=== PATIENT | female | born 1930 | race Caucasian/White ===

== ENCOUNTER 2018-06-01 06:39 | Day surgery (SDC) | payer MEDICARE, BC ==
[2018-06-01] MEDS ORDERED: Propofol 200 MG/20 ML SDV IV ONE (06:40)
[2018-06-01] MEDS: Lactated Ringers 1,000 ML IV SCH (07:27)
--- NOTE | 2018-06-01 08:26 | PCM.OPNOTE ---
- General Post-Op/Procedure Note Date of Surgery/Procedure: 06/01/18 Operative Procedure(s): c scope with bx Findings: tomy stricture anus diverticulosis descending colon polyp Pre Op Diagnosis: change in bowel habits personal hx of colon ca Post-Op Diagnosis: tomy stricture anus. diverticulosis. descending colon polyp Anesthesia Technique: MAC Primary Surgeon: Angelo Bowman Anesthesia Provider: Kimberley Wilson Pathology: colon polyp Complications: None Condition: Good Free Text/Narrative:: see dictation
[2018-06-01 09:30] VITALS: BP 123/52
--- NOTE | 2018-06-01 11:17 | OR ---
DATE OF OPERATION: 06/01/2018 SURGEON: Angelo Bowman MD PROCEDURE PERFORMED: Colonoscopy with cold forceps biopsy. PREOPERATIVE DIAGNOSES: Change in stool habits and personal history of colon cancer. POSTOPERATIVE DIAGNOSIS: Descending colon polyp and tomy-stricture of the anus. INDICATIONS FOR PROCEDURE: This is an 88-year-old white female who presents with a complaint of some flattening of her stool on defecation, especially if she is off her fiber. She has a personal history of colon cancer. Had a flexible sigmoidoscopy several years ago, which was unremarkable, but because of the persistent symptoms, a colonoscopy was offered and accepted. DESCRIPTION OF PROCEDURE: After an excellent IV sedation was administered, digital rectal exam was performed. On the posterior half of the anus, the sphincter was not as flexible as the anterior half. There was, in a sense, stricturing of half of the colon; however, fingertip and colonoscope were easily inserted, and this was not markedly restrictive in any way. The flexible colonoscope was inserted and advanced to the ileocolic anastomosis and slowly withdrawn. The following findings were noted: Transverse colon, unremarkable. Descending colon; occasional diverticula, small polypoid lesion, biopsied and submitted for permanent. Photo was taken. Sigmoid, diverticula. Colon was deflated, and the scope was removed. The patient tolerated the procedure well. Results by letter. /[id number] /MODL
== END 2018-06-01 09:14 | disposition home or self-care (01) ==
LOC: FB.SDS 06:39
PROVIDERS: ATTEND Surgery
DX: D12.4 Benign neoplasm of descending colon (principal); K57.30 Diverticulosis of large intestine without perforation or abscess without bleeding; K62.4 Stenosis of anus and rectum; I10 Essential (primary) hypertension; M19.90 Unspecified osteoarthritis, unspecified site; Z88.2 Allergy status to sulfonamides; Z88.8 Allergy status to other drugs, medicaments and biological substances; Z90.49 Acquired absence of other specified parts of digestive tract; Z85.038 Personal history of other malignant neoplasm of large intestine; Z79.1 Long term (current) use of non-steroidal anti-inflammatories (NSAID); Z79.82 Long term (current) use of aspirin; Z79.899 Other long term (current) drug therapy
CPT/HCPCS: 00811-QZ; 88305; J2704; J7120

== ENCOUNTER 2019-10-30 17:53 | Emergency (ER) | payer MEDICARE, BC ==
--- NOTE | 2019-10-30 19:43 | EDM.PDOC ---
ED HPI GENERAL MEDICAL PROBLEM - General Chief Complaint: Head Injury Stated Complaint: HEAD INJURY Time Seen by Provider: 10/30/19 18:20 Source of Information: Reports: Patient History Limitations: Reports: No Limitations - History of Present Illness INITIAL COMMENTS - FREE TEXT/NARRATIVE: Patient presented to the ED because of a head injury. She tripped and fell while in the kitchen and hit the left side of her head at edge of the wall and sustained a 2 cm laceration which already stopped bleeding upon her arrival in the ED. Denies any headache,N/V or LOC after the fall. She also c/o left hip pain although she was able to ambulate after the fall. Left Hip Pain Score (Numeric/FACES): 3 - Related Data Allergies Allergy/AdvReac Type Severity Reaction Status Date / Time lisinopril Allergy Cough Verified 10/30/19 20:01 metoprolol Allergy Dizziness Verified 10/30/19 20:01 Sulfa (Sulfonamide Allergy Rash Verified 10/30/19 20:01 Antibiotics) Home Meds: Home Meds Losartan/Hydrochlorothiazide [Losartan-HCTZ 50-12.5 MG] 1 each PO DAILY 10/25/12 [History] Multivitamin [Multi-Vitamin Daily] 1 each PO DAILY 10/25/12 [History] Aspirin [Adult Low Dose Aspirin EC] 1 tab PO DAILY 05/31/18 [History] Calcium Citrate/Vitamin D3 [Calcium Citrate-Vit D3 Tablet] 1 tab PO BID 05/31/18 [History] Citalopram Hydrobromide [Celexa] 1 tab PO DAILY 05/31/18 [History] Digoxin [Digox] 1 tab PO DAILY 05/31/18 [History] Glucosamine/D3/Boswellia Ana [Osteo Bi-Flex Tablet] 1 tab PO DAILY 05/31/18 [History] Ketotifen [Ketotifen 0.025% Ophth Soln] 1 drop OP DAILY PRN 05/31/18 [History] Loratadine [Claritin] 1 tab PO DAILY PRN 05/31/18 [History] Naproxen Sodium [Aleve] 1 tab PO BID PRN 05/31/18 [History] Psyllium [Metamucil] 1 cap PO DAILY PRN 05/31/18 [History] Past Medical History HEENT History: Reports: Allergic Rhinitis, Cataract, Macular Degeneration Cardiovascular History: Reports: Heart Murmur, High Cholesterol, Hypertension Gastrointestinal History: Reports: GERD Musculoskeletal History: Reports: Osteoarthritis, Osteoporosis Psychiatric History: Reports: Anxiety, Depression Hematologic History: Reports: Blood Transfusion(s), Other (See Below) Other Hematologic History: CLOTTING DISORDER, DVT Oncologic (Cancer) History: Reports: Colon - Past Surgical History HEENT Surgical History: Reports: Adenoidectomy, Cataract Surgery, Eye Surgery, Tonsillectomy GI Surgical History: Reports: Appendectomy, Cholecystectomy, Colon, Colonoscopy, Hernia Repair/Other Female Surgical History: Reports: Breast Biopsy, Hysterectomy, Other (See Below) Other Female Surgeries/Procedures: BREAST SURGERY Musculoskeletal Surgical History: Reports: Arthroscopic Knee, Carpal Tunnel, Joint Replacement, Knee Replacement, ORIF, Other (See Below) Other Musculoskeletal Surgeries/Procedures:: FOOT SURGERY Social & Family History - Tobacco Use Smoking Status *Q: Never Smoker - Caffeine Use Caffeine Use: Reports: Coffee - Living Situation & Occupation Living situation: Reports: , Alone Occupation: Retired ED ROS GENERAL - Review of Systems Review Of Systems: See Below Constitutional: Reports: No Symptoms HEENT: Reports: No Symptoms Respiratory: Reports: No Symptoms Cardiovascular: Reports: No Symptoms Endocrine: Reports: No Symptoms GI/Abdominal: Reports: No Symptoms : Reports: No Symptoms Musculoskeletal: Reports: Muscle Pain Neurological: Reports: No Symptoms Psychiatric: Reports: No Symptoms ED EXAM, HEAD INJURY - Physical Exam Exam: See Below Exam Limited By: No Limitations General Appearance: Alert, No Apparent Distress Head: Atraumatic, Normocephalic Eyes: Bilateral Eye: PERRL Ears: Normal External Exam, Normal Canal, Hearing Grossly Normal Nose: Normal Inspection, Normal Mucousa, No Blood Throat/Mouth: Normal Inspection, Normal Lips, Normal Teeth, Normal Gums Neck: Non-Tender, Full Range of Motion, Normal Alignment, Normal Inspection Respiratory: No Respiratory Distress, Lungs Clear, Normal Breath Sounds Cardiovascular: Normal Peripheral Pulses, Regular Rate, Rhythm, No Edema, No Gallop GI/Abdominal Exam: Normal Bowel Sounds, Soft, Non-Tender, No Organomegaly Back Exam: Normal Inspection, Full Range of Motion Extremities: Normal Inspection, Other (tenderness left hip) Neurologic: assessment specialist II-XII nml As Tested, No Motor/Sensory Deficits Skin: Normal Color, Other (2 cm laceration left parietal area) Course - Vital Signs Text/Narrative:: Wound was cleansed with saline and it doesn't require suturing because it's shallow and has quit bleeding. UTD with immunization Head CT-neg Patient's BP was elevated 180/1110 although she is asymptomatic. She was also given Norvasc 10 mg po x1 Last Recorded V/S: Last Vital Signs Temp 36.7 C 10/30/19 18:15 Pulse 80 10/30/19 20:10 Resp 16 10/30/19 18:15 BP 168/103 H 10/30/19 20:15 Pulse Ox 95 10/30/19 18:15 - Orders/Labs/Meds Orders: Active Orders 24 hr Category Date Time Status Head wo Cont [CT] Stat Exams 10/30/19 18:26 Taken Hip Min 2V or 3V w Pelvis Lt [CR] Stat Exams 10/30/19 18:26 Ordered Meds: Medications Discontinued Medications Generic Name Dose Route Start Last Admin Trade Name Renéq PRN Reason Stop Dose Admin Amlodipine Besylate 10 mg 10/30/19 19:42 10/30/19 19:47 Norvasc PO 10/30/19 19:43 10 mg NOW STA Administration Departure - Departure Time of Disposition: 01:30 Disposition: Home, Self-Care 01 Condition: Good Clinical Impression: Head injury, Laceration - Discharge Information Instructions: Head Injury, Adult, Contusion, [id number], Hypertension, Adult, [id number] Referrals: PCP,None [Primary Care Provider] - Forms: ED Department Discharge Additional Instructions: Please read discharge instructions on head injury, contusion and hypertension Take aleve 2 tablets twice daily as needed for pain Follow up as needed Sepsis Event Note (ED) - Evaluation Sepsis Screening Result: No Definite Risk - Focused Exam Vital Signs: Vital Signs Temp Pulse Resp BP BP BP Pulse Ox 10/30/19 20:15 168/103 H 10/30/19 20:10 80 173/103 H 10/30/19 19:47 179/101 H 10/30/19 19:25 179/101 H 10/30/19 19:15 183/102 H 10/30/19 18:15 36.7 C 83 16 181/106 H 95 - My Orders Last 24 Hours: My Active Orders 10/30/19 18:26 Head wo Cont [CT] Stat Hip Min 2V or 3V w Pelvis Lt [CR] Stat - Assessment/Plan Last 24 Hours: My Active Orders 10/30/19 18:26 Head wo Cont [CT] Stat Hip Min 2V or 3V w Pelvis Lt [CR] Stat
[2019-10-30] MEDS: amLODIPine 10 MG Tab PO STA (19:47)
[2019-10-30 20:23] VITALS: BP 168/103; PULSE 80
--- NOTE | 2019-10-31 11:14 | CR ---
INDICATION: Fall. LEFT HIP WITH PELVIS: Two frontal views of the pelvis with two additional frontal views of the left hip and a lateral view of the left hip were obtained 10/30/[address] of the pelvis dated 08/08/07. 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 The hip arthroplasties appear to be in good position and alignment with definite complicating process. The left hip specifically showed no evidence of an acute fracture or dislocation. No pelvic fracture site was identified. Degenerative changes are noted at the sacroiliac joints. Hypertrophic changes and disk disease are noted in the visualized lumbosacral spine. IMPRESSION: No acute fracture or dislocation. MTDD
== END 2019-10-30 20:40 | disposition home or self-care (01) ==
LOC: FB.ED 17:53
DX: S01.01XA Laceration without foreign body of scalp, initial encounter (principal); I10 Essential (primary) hypertension; F41.9 Anxiety disorder, unspecified; F32.9 Major depressive disorder, single episode, unspecified; M19.90 Unspecified osteoarthritis, unspecified site; Z88.8 Allergy status to other drugs, medicaments and biological substances; Z88.2 Allergy status to sulfonamides; Z79.82 Long term (current) use of aspirin; Z79.899 Other long term (current) drug therapy; W01.10XA Fall on same level from slipping, tripping and stumbling with subsequent striking against unspecified object, initial encounter
CPT/HCPCS: 70450; 73502-LT; 99282; 99284-25; A9270-GY